=== PATIENT | male | born 1945 | race Caucasian/White ===

== ENCOUNTER 2019-12-07 11:06 | Emergency (ER) | payer MEDICARE ==
[2019-12-07] MEDS ORDERED: SODIUM CHLORIDE 0.9% (FLUSH) 10 ML SYG IV PRN (11:14)
[2019-12-07] MEDS ORDERED: TETANUS,DIPHTHERIA,PERTUSSIS 1 EA SYG IM ONE (11:15)
[2019-12-07] MEDS ORDERED: SODIUM CHLORIDE 0.9% 1000ML 1,000 ML IVS ONE (11:15)
[2019-12-07] MEDS ORDERED: LIDOCAINE 1% W/ EPINEPHRINE 20 ML VIAL INJ ONE (11:16)
[2019-12-07 11:28] VITALS: TEMP 98.5
--- NOTE | 2019-12-07 11:39 | ED.PDOC ---
History of Present Illness - General Chief Complaint: Laceration Stated Complaint: laceration to top of head Time Seen by Provider: 12/07/19 11:13 Source: patient - History of Present Illness Initial Comments: 74 yo male who presents with cc of laceration to scalp following injury at home just [employer]. States was bringing the cows in when a heffer kicked him in the upper abdomen and he fell backwards against a metal gate and struck the top/back part of his head against the gate - causing a large laceration to the top of the scalp with large bleeding which has now stopped upon ED arrival. Denies any L OC. Reports pain level is minimal to head, no radiation, nothing taken for relief. Denies any neck pain, chest pain, abd pain, dyspnea, n/v. Unsure of date of last tetanus imm. Allergies/Adverse Reactions: Allergies NO KNOWN ALLERGY Allergy (Verified 12/07/19 11:29) Review of Systems - Review of Systems Review of Systems: 12/07/19 11:39 as per HPI All other Systems: Reviewed and Negative Family Medical History - Family History Mother Family History: Unknown Physical Exam - Physical Exam General Appearance: Alert, Comfortable, No apparent distress Eye Exam: bilateral normal Ears, Nose, Throat: hearing grossly normal, normal ENT inspection, normal pharynx Neck: non-tender, full range of motion, supple, normal inspection Respiratory: chest non-tender, lungs clear, normal breath sounds, no respiratory distress, no accessory muscle use Cardiovascular/Chest: normal peripheral pulses, regular rate, rhythm, no edema, no gallop, no JVD, no murmur Peripheral Pulses: radial,right: 2+, radial,left: 2+ Gastrointestinal/Abdominal: non tender, soft, no organomegaly Back Exam: normal inspection Extremity: normal range of motion, non-tender, normal inspection, no pedal edema, no calf tenderness 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, no motor/sensory deficits, alert, normal mood/affect, oriented x 3 Skin Exam: normal color, warm/dry, other - approx 8 cm horizontal linear laceration to top of head which appears clean and hemostatic Progress - Progress Progress: 12/07/19 11:40 Head injury, scalp laceration -consider ICH, skull frx, c-spine frx, other injuries -obtain CT head & c-spine, CXR, trauma labs, close monitoring -vitals stable, pt NAD -also Boostrix and clean/repair head lac prior to discharge 12/07/19 16:50 -CT head & c-spine without acute processes, scalp lac noted -CXR no acute processes per my read -Labwork largely unremarkable. Pt remained stable through ED stay. Scalp lac repaired with sutures without complication - sutures out in 2 weeks -dc home in good condition, return warnings discussed at length Jacoby Osman MD Billing #[id number] 12/07/19 11:14 IV Care:Saline Lock per Protoc QSHIFT Telemetry .ONCE Pulse Oximetry Assessment DAILY 12/07/19 11:15 EKG STAT 12/07/19 11:16 Wound/Incision:Care PRN Laboratory Results - last 24 hr 12/07/19 12/07/19 12/07/19 11:15 11:15 11:31 WBC Cancelled 5.4 RBC Cancelled 4.34 L Hgb Cancelled 13.8 L Hct Cancelled 40.8 L MCV Cancelled 94.0 MCH Cancelled 31.8 H MCHC Cancelled 33.8 RDW Cancelled 14.0 Plt Count Cancelled 189 MPV Cancelled 8.3 Absolute Neuts (auto) Cancelled 3.70 Absolute Lymphs (auto) Cancelled 1.20 Absolute Monos (auto) Cancelled 0.40 Absolute Eos (auto) Cancelled 0.10 Absolute Basos (auto) Cancelled 0.00 Neutrophils % Cancelled 68.1 Lymphocytes % Cancelled 22.3 Monocytes % Cancelled 8.0 Eosinophils % Cancelled 1.3 Basophils % Cancelled 0.3 Differential Comment Cancelled RBC Morphology Cancelled Sodium 139 Potassium 3.9 Chloride 107 Carbon Dioxide 24 Anion Gap 11.9 L BUN 20 H Creatinine 0.94 BUN/Creatinine Ratio 21.3 H Random Glucose 102 Serum Osmolality 280.3 Calcium 9.1 Total Bilirubin 0.8 AST 24 ALT 18 Alkaline Phosphatase 61 Serum Total Protein 6.7 Albumin 3.9 Globulin 2.8 Albumin/Globulin Ratio 1.4 - EKG/XRAY/CT EKG: Sinus - NSR, HR 70, no ST elev's, q waves noted in anteroseptal 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 Copy, Patient Portal Self Enrollment Instructions: DI for Laceration Repair of the Scalp Diet: resume usual diet Additional Instructions: Sutures out in 14 days. Return if wound has worsening redness, warmth, or pus- like discharge. Return if rapidly worsening or severe headache or other concerning symptoms.
--- NOTE | 2019-12-07 12:24 | RAD ---
EXAM DESCRIPTION: Chest,1 View CLINICAL HISTORY: kicked by cow to upper abdomen COMPARISON: None. IMPRESSION: Single AP portable upright view of the chest shows cardiac silhouette and pulmonary vasculature to be within normal limits. Lungs are normally aerated and clear. No obvious pleural effusion or pneumothorax is seen. Osseous structures are unremarkable Electronically signed by: Jacob Sullivan MD 12/07/2019 12:22 PM CDT
[2019-12-07] MEDS ORDERED: CHLORHEXIDINE GLUCONATE 4 % 15 ML UD TOP ONE (12:31)
--- NOTE | 2019-12-07 12:35 | CT ---
EXAM DESCRIPTION: Cervical Spine CLINICAL HISTORY: posterior head injury without LOC COMPARISON: None available. TECHNIQUE: Axial noncontast CT of the cervical spine with coronal and sagittal reformats. This exam was performed according to our departmental dose-optimization program, which includes automated exposure control, adjustment of the mA and/or kV according to patient size and/or use of iterative reconstruction technique. FINDINGS: Cervical vertebral body heights are maintained. Straightening of the normal cervical lordosis. No acute fracture or post traumatic positional abnormality of the cervical spine. Mild to moderate disc space narrowing from C3 through T1 most pronounced from C4 through T1. Trace degenerative anterolisthesis at C7-T1. Facet hypertrophic and degenerative changes most prominent on the right C2-C4 and left C3-C5. Moderate bilateral facet arthrosis at C7-T1. Mild spinal canal stenosis at C5-6 and C6-7 with multilevel foraminal encroachment. Soft tissues are unremarkable. Moderate calcifications of the carotid bulb are seen. Visualized skull base unremarkable. Lung apices show no acute findings. IMPRESSION: No CT evidence of acute fracture or posttraumatic positional abnormality of the cervical spine. Moderate spondylitic changes of the cervical spine. Nonspecific straightening of the normal cervical lordosis could be secondary to patient positioning or muscle spasm. Electronically signed by: Jacob Sullivan MD 12/07/2019 12:33 PM CDT
--- NOTE | 2019-12-07 12:37 | CT ---
EXAM DESCRIPTION: Head CLINICAL HISTORY: posterior head injury without LOC COMPARISON: None TECHNIQUE: Noncontrast transaxial CT images of the head are obtained from base to vertex. This exam was performed according to our departmental dose-optimization program, which includes automated exposure control, adjustment of the mA and/or kV according to patient size and/or use of iterative reconstruction technique. FINDINGS: The midline structures are not displaced. Sulci are age-appropriate. There are areas of decreased attenuation in the periventricular white matter and the white matter of the centrum semiovale. There is no evidence of mass, mass-effect, hydrocephalus, or acute intracranial hemorrhage. No abnormal extra axial fluid collection is seen. Moderate calcifications of the intracranial carotid arteries. Bone windows show no evidence of depressed skull fracture. Mild posterior midline scalp soft tissue swelling. Moderate, deep scalp soft tissue laceration with soft tissue emphysema over the vertex of the skull. The visualized paranasal sinuses are unremarkable. IMPRESSION: 1. Age-appropriate atrophy with evidence of old small vessel ischemic type changes seen. 2. Moderate scalp soft tissue laceration and edema over the vertex of the skull.. Electronically signed by: Jacob Sullivan MD 12/07/2019 12:35 PM CDT
[2019-12-07 14:06] VITALS: BP 157/87; O2SAT 99
== END 2019-12-07 14:06 | disposition home or self-care (01) ==
LOC: ER 11:06
DX: S01.01XA Laceration without foreign body of scalp, initial encounter (principal); M47.812 Spondylosis without myelopathy or radiculopathy, cervical region; W01.198A Fall on same level from slipping, tripping and stumbling with subsequent striking against other object, initial encounter; W55.22XA Struck by cow, initial encounter; Y93.K9 Activity, other involving animal care; Y92.009 Unspecified place in unspecified non-institutional (private) residence as the place of occurrence of the external cause
CPT/HCPCS: 70450; 71045; 72125; 80053; 85025; 90471; 90715; 93005; 94760; J7030